=== PATIENT | female | born 2000 | race Hispanic/Latino ===

== ENCOUNTER 2023-04-10 18:27 | Observation (INO) | payer MEDICAID ==
[~2023-04-10] VITALS: Ht 170.2 cm; Wt 133.8 kg
[2023-04-10 18:29] VITALS: BP 123/82; PULSE 101; RESP 14
[2023-04-10 20:38] LABS: ADD UA MICROSCOPIC YES; APPEARANCE,URINE CLEAR (CLEAR); BILIRUBIN,URINE NEGATIVE (NEGATIVE); COLOR,URINE YELLOW (YELLOW); GLUCOSE, URINE (UA) NEGATIVE (NEGATIVE); KETONES,URINE NEGATIVE (NEGATIVE); LEUKOCYTE ESTERASE ,URINE 25 Leu/uL (NEGATIVE); NITRATE,URINE NEGATIVE (NEGATIVE); OCCULT BLOOD,URINE NEGATIVE (NEGATIVE); PH,URINE 6.5 (5.0-8.0); PROTEIN,URINE 30 mg/dL (NEGATIVE)
[2023-04-10 20:44] LABS: BACTERIA,URINE FEW /HPF (None Seen); MUCUS,URINE FEW LPF (None Seen); SQUAMOUS EPITHELIAL CELL,UR FEW /HPF (0-2)
== END 2023-04-10 21:55 | disposition home or self-care (01) ==
LOC: EDH 18:27 → LDH 18:28
PROVIDERS: ADMIT Obstetrics & Gynecology; ATTEND Obstetrics & Gynecology
DX: O26.892 Other specified pregnancy related conditions, second trimester (principal); R10.31 Right lower quadrant pain; O99.891 Other specified diseases and conditions complicating pregnancy; M54.50 Low back pain, unspecified; Z3A.27 27 weeks gestation of pregnancy; Z98.891 History of uterine scar from previous surgery
CPT/HCPCS: 59025; 81001; G0378 ×3; G0379

== ENCOUNTER 2023-05-29 13:15 | Observation (INO) | payer MEDICAID ==
[~2023-05-29] VITALS: Ht 172.7 cm; Wt 135.2 kg
[2023-05-29] MEDS ORDERED: LACTATED RINGERS 1000ML 1,000 ML IV SCH (13:30)
[2023-05-29] MEDS ORDERED: LACTATED RINGERS 1000ML 1,000 ML IV ONE (13:31)
[2023-05-29 14:01] LABS: APPEARANCE,URINE CLEAR (CLEAR); BILIRUBIN,URINE NEGATIVE (NEGATIVE); COLOR,URINE YELLOW (YELLOW); GLUCOSE, URINE (UA) NEGATIVE (NEGATIVE); KETONES,URINE NEGATIVE (NEGATIVE); LEUKOCYTE ESTERASE ,URINE 75 Leu/uL (NEGATIVE); NITRATE,URINE NEGATIVE (NEGATIVE); OCCULT BLOOD,URINE NEGATIVE (NEGATIVE); PROTEIN,URINE 20 mg/dL (NEGATIVE); UROBILINOGEN,URINE 0.2 mg/dL (0.2-1.0)
[2023-05-29 14:05] LABS: ADD UA MICROSCOPIC YES
[2023-05-29 14:06] LABS: BACTERIA,URINE RARE /HPF (None Seen); MUCUS,URINE RARE LPF (None Seen); SQUAMOUS EPITHELIAL CELL,UR FEW /HPF (0-2)
== END 2023-05-29 15:00 | disposition home or self-care (01) ==
LOC: LDH 13:15
PROVIDERS: ADMIT Obstetrics & Gynecology; ATTEND Obstetrics & Gynecology
DX: O21.2 Late vomiting of pregnancy (principal); O26.893 Other specified pregnancy related conditions, third trimester; R10.30 Lower abdominal pain, unspecified; Z98.51 Tubal ligation status; Z79.82 Long term (current) use of aspirin; Z3A.34 34 weeks gestation of pregnancy
CPT/HCPCS: 96360; 87088; 81001; G0378 ×2; G0379; J7120